=== PATIENT | male | born 1940 | race American Indian/Alaskan Native ===

== ENCOUNTER 2016-03-25 17:55 | Emergency (ER) | payer MEDICARE ==
[2016-03-25 18:53] VITALS: BP 146/76
--- NOTE | 2016-03-25 19:56 | Emergency Department Report ---
Chief Complaint: Psych Stated Complaint: DETOX Time Seen by Provider: 03/25/16 19:52 - HPI History of Present Illness: pt here requesting medical evaluation for detox program .pt is concern with the amount of alcohol pt is consuming .pt state pt is non compliance with medication for hypertension and diabetes .pt denies any compliant at present - ROS Review of Systems: per HPI - Exam Vital Signs: Vital Signs 03/25/16 18:46 Temperature 98.0 F Pulse Rate 102 H Respiratory 16 Rate Blood Pressure 146/76 O2 Sat by Pulse 96 Oximetry Physical Exam: GENERAL: The patient is well-developed and well-nourished. Patient is in NAD. HENT: Normocephalic. Atraumatic. Patient has moist mucous membranes. Throat: No erythema, swelling or exudates. EYES: Extraocular motions are intact, PERRL NECK: Supple. No meningitic signs are noted. There is no adenopathy noted. CHEST/LUNGS: Clear to auscultation bilaterally. No wheezing, rales or rhonchi noted. There is no respiratory distress noted. HEART/CARDIOVASCULAR: Regular rate and rhythm. Normal S1 S2. No murmurs, rubs , clicks, or gallops. ABDOMEN: Abdomen is soft, nontender.. Bowel sounds normoactive. There is no abdominal distention. Negative rebound tenderness : Deferred. SKIN: There is no rash. There is no edema. There is no diaphoresis. NEURO: The patient is A&Ox3. The patient has no focal neurologic deficits. MUSCULOSKELETAL: There is no tenderness or deformity. There is no limitation range of motion. pt ambulate with a cane PSYCH: Pt has appropriate mood and affect. MSE screening note: Focused history and physical exam performed. Due to findings the following was ordered: ED Disposition for MSE Condition: Stable
[2016-03-25 20:50] LABS: Basophils % (Auto) 0.1 % (0.0-1.8); Eosinophils % (Auto) 0.6 % (0.0-4.3); Hematocrit 38.2 % (35.5-45.6); Mean Corpuscular HGB Conc 34 % (32-34); Mean Corpuscular Hemoglobin 33 pg (28-32); Mean Corpuscular Volume 98 fl (84-94); Platelet Count 137 K/mm3 (140-440); Red Blood Count 3.91 M/mm3 (3.65-5.03); Red Cell Distribution Width 16.7 % (13.2-15.2); White Blood Count 6.4 K/mm3 (4.5-11.0)
[2016-03-25 20:52] LABS: Blood Urea Nitrogen 63 mg/dL (9-20); Calcium 9.1 mg/dL (8.4-10.2); Carbon Dioxide 17 mmol/L (22-30); Chloride 85.1 mmol/L (98-107); Glucose 172 mg/dL (75-100); Potassium 4.7 mmol/L (3.6-5.0); Sodium 130 mmol/L (137-145)
[2016-03-25 21:00] LABS: Anion Gap 33 mmol/L
[2016-03-26 02:02] LABS: Urine Drugs of Abuse Note Disclamer
[2016-03-26 02:42] LABS: Bilirubin,Urine NEG (Negative); Blood,Urine NEG (Negative); Ketones,Urine TR mg/dL (Negative); Leukocyte Esterase,Urine NEG (Negative); Mucus,Urine FEW /HPF; Nitrite,Urine NEG (Negative); Protein,Urine <15 mg/dL mg/dL (Negative)
--- NOTE | 2016-03-26 14:11 | ED Elopement Review ---
ED Pt Elopement review - Results review Lab results: Laboratory Tests 03/25/16 03/25/16 03/25/16 20:08 20:08 20:08 WBC 6.4 RBC 3.91 Hgb 13.0 Hct 38.2 MCV 98 H MCH 33 H MCHC 34 RDW 16.7 H Plt Count 137 L Lymph % (Auto) 9.7 L Casey % (Auto) 14.0 H Eos % (Auto) 0.6 Baso % (Auto) 0.1 Lymph # 0.6 L Casey # 0.9 H Eos # 0.0 Baso # 0.0 Seg Neutrophils % 75.6 H Seg Neutrophils # 4.8 Sodium 130 L Potassium 4.7 Chloride 85.1 L Carbon Dioxide 17 L Anion Gap 33 BUN 63 H Creatinine 1.2 Estimated GFR > 60 BUN/Creatinine Ratio 52.50 Glucose 172 H Calcium 9.1 Urine Color Urine Turbidity Urine pH Ur Specific [place] Urine Protein Urine Glucose (UA) Urine Ketones Urine Blood Urine Nitrite Urine Bilirubin Urine Urobilinogen Ur Leukocyte Esterase Urine WBC (Auto) Urine RBC (Auto) U Epithel Cells (Auto) Hyaline Casts Urine Mucus Urine Opiates Screen Urine Methadone Screen Acetaminophen < 15.0 Ur Barbiturates Screen Ur Phencyclidine Scrn Ur Amphetamines Screen U Benzodiazepines Scrn Urine Cocaine Screen U Marijuana (THC) Screen Drugs of Abuse Note Plasma/Serum Alcohol 03/25/16 03/26/16 03/26/16 20:08 01:49 01:49 WBC RBC Hgb Hct MCV MCH MCHC RDW Plt Count Lymph % (Auto) Casey % (Auto) Eos % (Auto) Baso % (Auto) Lymph # Casey # Eos # Baso # Seg Neutrophils % Seg Neutrophils # Sodium Potassium Chloride Carbon Dioxide Anion Gap BUN Creatinine Estimated GFR BUN/Creatinine Ratio Glucose Calcium Urine Color Leyla Urine Turbidity Clear Urine pH 5.0 Ur Specific [place] 1.017 Urine Protein <15 mg/dl Urine Glucose (UA) 50 Urine Ketones Tr Urine Blood Neg Urine Nitrite Neg Urine Bilirubin Neg Urine Urobilinogen 4.0 Ur Leukocyte Esterase Neg Urine WBC (Auto) 3.0 Urine RBC (Auto) 1.0 U Epithel Cells (Auto) < 1.0 Hyaline Casts 4 Urine Mucus Few Urine Opiates Screen Presumptive negative Urine Methadone Screen Presumptive negative Acetaminophen Ur Barbiturates Screen Presumptive negative Ur Phencyclidine Scrn Presumptive negative Ur Amphetamines Screen Presumptive negative U Benzodiazepines Scrn Presumptive negative Urine Cocaine Screen Presumptive negative U Marijuana (THC) Screen Presumptive negative Drugs of Abuse Note Disclamer Plasma/Serum Alcohol 0.12 H - Call Back decision Pt Call Back Decision: Pt to F/U with PMD
== END 2016-03-26 01:50 | disposition left against medical advice (07) ==
LOC: ED 17:55
DX: F10.10 Alcohol abuse, uncomplicated (principal); E11.9 Type 2 diabetes mellitus without complications; I10 Essential (primary) hypertension; Z53.21 Procedure and treatment not carried out due to patient leaving prior to being seen by health care provider
CPT/HCPCS: 36415; 80048; 80307; 81001; 85025; G0480; 80320

== ENCOUNTER 2017-05-28 10:58 | Outpatient (CLI) | payer MEDICARE ==
--- NOTE | 2017-05-28 14:31 | XRay Report ---
XRAY RIGHT KNEE 4 THREE VIEWS: 05/28/17 CLINICAL: Right knee pain. 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 There is deformity and slight medial subluxation of the femur relative to the tibia. Widening of the lateral joint space. Medial and lateral osteophytes. Minimal patellofemoral arthritis.No joint effusion.A medial soft tissue calcification may be ligamentous or may be an intra-articular loose body. No fracture or dislocation. IMPRESSION: Osteoarthritis of the medial joint with a possible loose body.
== END 2017-05-28 10:59 | disposition home or self-care (01) ==
LOC: SPVIMAG 10:58
PROVIDERS: ATTEND Orthopaedic Surgery Sports Medicine
DX: M17.11 Unilateral primary osteoarthritis, right knee (principal)